=== PATIENT | female | born 2000 | race Caucasian/White ===

== ENCOUNTER 2019-12-10 19:53 | Emergency (ER) | payer OTHER, BC ==
[2019-12-10 20:06] VITALS: BP 135/86; PULSE 95; RESP 16; TEMP 99.6
[2019-12-10] MEDS ORDERED: AMOXIC-POT CLAV 875-125MG 1 EACH TAB PO STA (20:30)
[2019-12-10] MEDS ORDERED: RABIES VACCINE (PCEC) 2.5 UNIT KIT IM ONE (20:31)
[2019-12-10] MEDS ORDERED: RABIES IMMUNE GLOB 300 UNIT/ML 1 ML VIAL IM ONE (20:32)
[2019-12-10] MEDS ORDERED: RABIES IMMUNE GLOB 300 UNIT/ML 5 ML VIAL IM ONE (20:45)
--- NOTE | 2019-12-10 20:54 | ED ---
Animal Bite HPI - General Chief Complaint: Animal Bite Stated Complaint: Bat Bite Time Seen by Provider: 12/10/19 20:19 Source: patient Mode of arrival: ambulatory Limitations: no limitations - History of Present Illness Initial Comments: Patient is a 19-year-old female presenting to the emergency department with chief complaint of an animal bite. Patient reports she was helping a bit off the ground when the bat bit her on her finger. Patient states it was the left fourth digit. Patient reports there is minimal pain at the site of injury. Patient reports incident occurred a few hours prior to arrival. Patient states this was a while back. She denies taking medication to alleviate the symptoms. Denies swelling, discharge, erythema at site of injury. - Related Data Home Medications Medication Instructions Recorded Confirmed Control Pill 1 tab PO DIRECTED 11/03/14 11/03/14 Previous Rx's Medication Instructions Recorded LORazepam [Ativan] 0.5 mg PO TID PRN #20 tab 11/04/14 Cephalexin [Keflex] 500 mg PO Q12HR 10 Days cap 09/06/18 Amoxicillin/Potassium Clav 1 tab PO Q12HR #20 tab 12/10/19 [Augmentin 875-125 Tablet] Allergies Allergy/AdvReac Type Severity Reaction Status Date / Time shellfish derived [Shellfish] Allergy Rash/Hives Verified 12/10/19 20:06 Sulfa (Sulfonamide Allergy Rash/Hives Verified 09/06/18 16:34 Antibiotics) Review of Systems ROS Statement: Those systems with pertinent positive or pertinent negative responses have been documented in the HPI. ROS Other: All systems not noted in ROS Statement are negative. Past Medical History Additional Past Medical History / Comment(s): ovarian cyst History of Any Multi-Drug Resistant Organisms: None Reported Additional Past Surgical History / Comment(s): fallopian tube removal Past Psychological History: No Psychological Hx Reported Smoking Status: Never smoker Past Alcohol Use History: None Reported Past Drug Use History: None Reported General Exam Limitations: no limitations General appearance: alert, in no apparent distress, obese Head exam: Present: atraumatic, normocephalic, normal inspection Eye exam: Present: normal appearance, PERRL, EOMI Pupils: Present: normal accommodation ENT exam: Present: normal exam, normal oropharynx, mucous membranes moist Neck exam: Present: normal inspection, full ROM. Absent: tenderness Respiratory exam: Present: normal lung sounds bilaterally. Absent: respiratory distress, wheezes Cardiovascular Exam: Present: regular rate, normal rhythm, normal heart sounds GI/Abdominal exam: Present: soft. Absent: distended, tenderness, guarding Extremities exam: Present: full ROM, normal capillary refill, other (+2 ulnar and radial pulses bilaterally.). Absent: normal inspection (2 small bite tsang on the distal end of the left fourth digit.), tenderness Back exam: Present: normal inspection, full ROM. Absent: tenderness Neurological exam: Present: alert, oriented X3 Psychiatric exam: Present: normal affect, normal mood Skin exam: Present: warm, dry, intact, normal color Course Vital Signs 12/10/19 20:04 Temperature 99.6 F Pulse Rate 95 Respiratory 16 Rate Blood Pressure 135/86 O2 Sat by Pulse 97 Oximetry Medical Decision Making - Medical Decision Making Patient is a 19-year-old female presenting to emergency Department with a chief complaint of animal bite. On exam patient has a bite bartolome on the left fourth digit with no signs of infection at the moment. Bite bartolome caused by a wild bat. Patient given rabies prophylaxis with vaccinations scheduled for day 3, 7 and 14. Patient also started on Augmentin. Return parameters thoroughly discussed with patient was understanding and agreeable. Case discussed with physician. Disposition Clinical Impression: Bite by animal, Bat bite of finger Disposition: HOME SELF-CARE Instructions (If sedation given, give patient instructions): Animal Bite (ED) Additional Instructions: Take prescribed medication as directed. Return to the emergency department and day 3, 7 and 14 for rabies vaccination. Prescriptions: Amoxicillin/Potassium Clav [Augmentin 875-125 Tablet] 1 tab PO Q12HR #20 tab Is patient prescribed a controlled substance at d/c from ED?: No Referrals: Franny Arzate MD [Primary Care Provider] - 1-2 days Time of Disposition: 20:53
== END 2019-12-10 21:46 | disposition home or self-care (01) ==
LOC: EC 19:53
DX: S61.255A Open bite of left ring finger without damage to nail, initial encounter (principal); Z20.3 Contact with and (suspected) exposure to rabies; Z91.013 Allergy to seafood; Z88.2 Allergy status to sulfonamides; Z79.3 Long term (current) use of hormonal contraceptives; W64.XXXA Exposure to other animate mechanical forces, initial encounter; Y93.89 Activity, other specified; Y92.89 Other specified places as the place of occurrence of the external cause
CPT/HCPCS: 90375; 90675; 96372; 99283

== ENCOUNTER → 2020-01-07 | Outpatient (CLI) | payer OTHER, BC | END | disposition home or self-care (01) | LOC: LABWHC1 07:21 | PROVIDERS: ATTEND Pediatrics | DX: Z20.828 Contact with and (suspected) exposure to other viral communicable diseases (principal) | CPT/HCPCS: U0003; C9803 ==